=== PATIENT | female | born 1940 | race Caucasian/White ===

== ENCOUNTER 2020-08-17 16:02 | Outpatient (CLI) | payer MEDICARE, BC, SELFPAY ==
--- NOTE | ~2020-08-17 | XR_ITS ---
XR_CERV2-3V_CR DATE: 08/17/2020 16:38 INDICATION: Generalized neck pain. Limited range of motion. History of multiple falls. TECHNIQUE: Lateral, swimmer's, AP and open-mouth views COMPARISON: None FINDINGS: There is diffuse osteopenia. There is 3.3 mm anterolisthesis at C3-4. There appears to be greater anterolisthesis at C4-5. There is suggestion severe degenerative disc disease at C4-5, C5-6 and likely C6-7 but these areas ar e not optimally visualized. Consider further evaluation with CT or MR imaging. Prominent degenerative change of the apophyseal joints throughout the cervical spine. Left AICD/pacemaker device. IMPRESSION: Limited incomplete examination of the cervical spine; consider CT or MRI examination for complete evaluation Reviewed, dictated and finalized at [facility]. Reviewed, dictated and finalized at location A. CUTTER IMPRESSION: Limited incomplete examination of the cervical spine; consider CT o r MRI examination for complete evaluation
--- NOTE | ~2020-08-17 | XR_ITS ---
XR shoulder RT min 2V DATE: 08/17/2020 16:37 INDICATION: Chronic right shoulder pain. History of multiple falls. TECHNIQUE: 4 views COMPARISON: None FINDINGS: Diffuse osteopenia. No recent fracture or dislocation. No periosteal reaction or bone destruction. No abnormal right shou lder soft tissue calcification is detected. There is mild osteoarthritis at the right glenohumeral joint. Incidental finding of left AICD/pacemaker leads. IMPRESSION: Osteopenia Mild osteoarthritis at the glenohumeral joint. Reviewed, dictated and finalized at location A. SPECIAL AGENT
== END 2020-08-17 16:03 | disposition home or self-care (01) ==
LOC: CHSIMG 16:04
PROVIDERS: PCP Family Medicine; Visit Provider Family Medicine
DX: M25.511 Pain in right shoulder (principal); M54.2 Cervicalgia
CPT/HCPCS: 72040; 73030

== ENCOUNTER 2020-08-30 10:14 | Outpatient (CLI) | payer MEDICARE, BC, SELFPAY ==
--- NOTE | ~2020-08-30 | CT_ITS ---
EXAMINATION: CT soft tissue neck wo con DATE: 08/30/2020 10:46 INDICATION: Neck pain. TECHNIQUE: Computed tomography (CT) of the neck was performed without intravenous contrast. Automated exposure control and iterative reconstruction technique were employed. The dose-length product was 4 86.51 mGy-cm. COMPARISON: None FINDINGS: There are likely changes of ocular lens replacement surgeries. There are no pathologically enlarged lymph nodes. There is a left chest pacer. There is a trace left mastoid effusion. The parana faizan sinuses are clear. There is levoscoliosis of cervicothoracic spine. There is 3 mm anterolisthesis of C3 on C4 and C4 on C5, 2 mm retrolisthesis of C6 on C7, and 2 mm anterolisthesis of C7 on T1. The re is mildly decreased disc height at C3-C4, moderately decreased disc height at C4-C5, and severely decreased disc height at C5-C6 and C6-C7. The following disc levels are specifically discussed: C2-C3: There is mild left uncovertebral joint osteoarthritis. There is moderate right and severe left facet joint osteoarthritis. There is mild left neural foraminal stenosis. There is no central canal stenosis. C3-C4: There is mild left uncovertebral joint osteoarthritis. There is severe bilateral facet joint o steoarthritis. There is moderate bilateral neural foraminal stenosis. There is mild central canal oniel nosis. C4-C5: There is mild bilateral uncovertebral joint osteoarthritis. There is severe bilateral facet chanda int osteoarthritis. There is moderate bilateral neural foraminal stenosis. There is mild central max l stenosis. C5-C6: There is severe bilateral uncovertebral joint osteoarthritis. There is severe bilateral facet joint osteoarthritis. There is mild right and moderate left neural foraminal stenosis. There is mild central canal stenosis. C6-C7: There is severe bilateral uncovertebral joint osteoarthritis. There is severe bilateral facet joint osteoarthritis. There is moderate bilateral neural foraminal stenosis. There is mild central ca nal stenosis. C7-T1: There is no uncovertebral joint osteoarthritis. There is severe bilateral facet joint osteoart hritis. There is mild bilateral neural foraminal stenosis. There is no central canal stenosis. IMPRESSION: 1. Severe cervical spondylosis. Reviewed, dictated and finalized at location A. GRATION INSPECTOR
== END 2020-08-30 10:15 | disposition home or self-care (01) ==
LOC: CHSIMG 10:16
PROVIDERS: PCP Nurse Practitioner Family; Visit Provider Nurse Practitioner Family
DX: M54.2 Cervicalgia (principal); M47.9 Spondylosis, unspecified
CPT/HCPCS: 70490

== ENCOUNTER 2020-09-15 11:00 | Outpatient (RCR) | payer MEDICARE, BC, SELFPAY ==
[2020-06-22 15:26] VITALS: BP 139/75; PULSE 76; RESP 16; O2SAT 98; BMI 36.1
== END 2020-09-20 23:59 | disposition home or self-care (01) ==
PROVIDERS: PCP Family Medicine
DX: I20.8 Other forms of angina pectoris (principal)
CPT/HCPCS: 93798

== ENCOUNTER 2020-10-27 14:47 | Outpatient (CLI) | payer MEDICARE, SELFPAY ==
[2020-10-27 15:12] LABS: Hematocrit 37.2 % (35.0-42.0); Hemoglobin 11.7 g/dL (11.7-13.8); Mean Corpuscular HGB Conc 31.5 g/dL (32.0-36.0); Mean Corpuscular Hemoglobin 32.1 pg (27.0-31.0); Mean Corpuscular Volume 101.9 fL (78.0-102.0); Mean Platelet Volume 9.2 fl (9.2-11.8); Platelet Count Result 252 K/mm3 (150-420); Red Blood Count 3.65 M/mm3 (4.20-5.40); Red Cell Distribution Width 13.5 % (11.6-14.4)
[2020-10-27 15:22] LABS: Hemoglobin A1C 6.2 % (<5.7)
[2020-10-27 16:06] LABS: Alanine Aminotransferase 19 U/L (14-59); Albumin Level 3.5 g/dL (3.4-5.0); Alkaline Phosphatase 56 U/L (46-116); Anion Gap 4 mmol/L (8-16); Aspartate Amino Transferase 14 U/L (15-37); Bilirubin,Total 0.3 mg/dL (0.00-1.00); Blood Urea Nitrogen 25 mg/dL (7-18); Calcium 9.1 mg/dL (8.5-10.1); Carbon Dioxide 31 mmol/L (21-32); Chloride 103 mmol/L (98-108); Estimated Glomerular Filt Rate 53; Glucose 124 mg/dL (70-99); Osmolality Calculated 291 mOsm/kg (285-295); Potassium 4.7 mmol/L (3.5-5.1); Sodium 138 mmol/L (136-145); Total Protein 6.7 g/dL (6.4-8.2)
[2020-10-27 16:12] LABS: Thyroid Stimulating Hormone Reflex 1.34 u/IU/mL (0.36-3.74)
[2020-10-28 12:10] LABS: Creatinine Urine 145.32 mg/dL (40-278); MALB Creatinine Ratio 8.9 mg/g (0-30); Microalbumin Urine Random < 13.0 mg/L
== END 2020-10-27 14:48 | disposition home or self-care (01) ==
LOC: CHSLAB 14:50
PROVIDERS: PCP Family Medicine; Visit Provider Family Medicine
DX: E11.9 Type 2 diabetes mellitus without complications (principal)
CPT/HCPCS: 36415; 80053; 82043; 83036; 84443; 85027

== ENCOUNTER 2020-10-30 11:00 | Outpatient (RCR) | payer MEDICARE, BC, SELFPAY ==
[2020-09-21 00:01] VITALS: BP 139/75; PULSE 76; RESP 16; O2SAT 98; BMI 36.1
== END 2020-10-30 13:00 | disposition home or self-care (01) ==
PROVIDERS: PCP Family Medicine
DX: I20.8 Other forms of angina pectoris (principal)
CPT/HCPCS: 93798; 97150; G0424

== ENCOUNTER 2021-03-27 15:03 | Outpatient (CLI) | payer MEDICARE, BC, SELFPAY ==
--- NOTE | ~2021-03-27 | XR_ITS ---
EXAMINATION: XR chest 2V DATE: 03/27/2021 15:35 INDICATION: Shortness of breath, COVID 19 TECHNIQUE: PA and lateral views of the chest are obtained. COMPARISON: None available FINDINGS: There are minimal opacities of the lung bases. Cardiomegaly is noted. There is no pleural e ffusion or pneumothorax. There is severe thoracic spondylosis. A dual-lead cardiac AICD/pacemaker of the left chest wall ends with leads in expected locations. There are partially imaged changes of post erior fusion in the lumbar spine. IMPRESSION: 1. Minimal airspace opacities of the lung bases, consistent with atelectasis versus pneumonia. 2. Cardiomegaly. Reviewed, dictated and finalized at location B. IMPRESSION: 1. Minimal airspace opacities of the lung bases, consistent with atelectasis ve rsus pneumonia. 2. Cardiomegaly.
== END 2021-03-27 15:04 | disposition home or self-care (01) ==
LOC: CHSIMG 15:08
PROVIDERS: PCP Nurse Practitioner Family; Visit Provider Nurse Practitioner Family
DX: U07.1 COVID-19 (principal)
CPT/HCPCS: 71046

== ENCOUNTER 2021-03-29 08:26 | Outpatient (CLI) | payer MEDICARE, BC, SELFPAY ==
[2021-03-29] MEDS: ACETAMINOPHEN 325 MG TABLET 650 MG PO (08:56)
[2021-03-29] MEDS: diphenhydrAMINE HCl CAP 25 MG CAPSULE PO (08:57)
[2021-03-29] MEDS: FAMOTIDINE 20 MG TABLET PO (08:57)
[2021-03-29 09:17] VITALS: BMI 35.6
[2021-03-29 09:18] VITALS: BP 135/60; PULSE 76; RESP 18; TEMP 36.8; O2SAT 98
[2021-03-29 10:10] VITALS: BP 124/59; PULSE 72; RESP 16; TEMP 36.4; O2SAT 97
--- NOTE | 2021-03-29 10:11 | PC.NURSE ---
Patient here for IV Regeneron infusion r/t positive with Covid and fits in high risk criteria. Education on medication given. No concerns voiced. Pre meds PO and IV Regeneron administered. Tolerated well. Safe exit of hospital.
== END 2021-03-29 08:27 | disposition home or self-care (01) ==
LOC: CHSTREATRM 08:31
PROVIDERS: PCP Nurse Practitioner Family; Visit Provider Nurse Practitioner Family
DX: Z23 Encounter for immunization (principal); U07.1 COVID-19
CPT/HCPCS: A9270; J7050; M0243

== ENCOUNTER 2021-04-16 08:40 | Outpatient (CLI) | payer MEDICARE, SELFPAY ==
[2021-04-16 09:05] LABS: Hemoglobin A1C 6.6 % (<5.7)
[2021-04-16 10:05] LABS: Thyroid Stimulating Hormone Reflex 1.76 u/IU/mL (0.36-3.74)
== END 2021-04-16 08:41 | disposition home or self-care (01) ==
LOC: CHSLAB 08:42
PROVIDERS: PCP Family Medicine; Visit Provider Family Medicine
DX: E11.9 Type 2 diabetes mellitus without complications (principal); E03.9 Hypothyroidism, unspecified
CPT/HCPCS: 36415; 83036; 84443

== ENCOUNTER 2021-10-18 10:05 | Outpatient (CLI) | payer MEDICARE, BC, SELFPAY ==
--- NOTE | 2021-10-25 14:10 | P.PCNPFT_ITS ---
PFT Procedure Performed PFT Procedure Performed Spirometry with Pre/Post Bronchodilator Plethysmography (Lung Vol) Diffusing Cap (DLCO) Flow Vol Loop PFT Interpretation DOS: 10/18/2021 REQUESTING: Dr You REASON FOR TESTING: Dyspnea PULMONARY FUNCTION TESTS Results are reliable and reproducible. Spirometry: FEV1 is 74% predicted, 1.25 L, mildly reduced. FVC is 85% predicted, 1.83 L, normal. The FEV1/FVC ratio is 68%, mildly decreased and consistent with airflow obstruction. After bronchodilator administration there was a 12% increase in the FVC, and this is greater than 200 mL. This is consistent with a good response to bronchodilator. Lung volumes: Total lung capacity is 107%, 4.40 L. This is a normal lung capacity. The residual volume is 140% predicted which shows moderate air trapping. The RV/TLC is increased 57% consistent with air trapping. Airway resistance increased, 345%. Diffusion: DLCO is 71%, mildly decreased. When adjusted for alveolar volumes, this corrects to 118%, normal. Flow volume loop: There is mild scooping of the expiratory limb consistent w ith obstruction. IMPRESSION: Mild obstructive ventilatory impairment with good response to bronchodilator, moderate air trapping and mild diffusion impairment. In the proper clinical setting this may represent COPD asthma overlap. Clinical correlation is advised. Cara Wolf MD
== END 2021-10-18 10:06 | disposition home or self-care (01) ==
LOC: CHSCARD 10:06
PROVIDERS: PCP Family Medicine; Visit Provider Family Medicine
DX: R06.00 Dyspnea, unspecified (principal)
CPT/HCPCS: 94060; 94726; 94729

== ENCOUNTER 2021-12-10 14:48 | Outpatient (CLI) | payer MEDICARE, BC, SELFPAY ==
--- NOTE | ~2021-12-10 | XR_ITS ---
EXAM: XR_[id number]_CR DATE: 12/10/2021 15:19 HISTORY: FALL X4DAYS AGO,RT>LT RIB PAIN POSTERIOR . COMPARISON: None available. FINDINGS: Left chest pacer, with intact leads. Upper abdominal soft tissue anchors. Mediastinal vasc ular clips. Senescent changes in the lungs. Hiatal hernia. Severe osteopenia which limits radiographi c sensitivity. Thoracolumbar scoliosis with lumbar fusion. Numerous left ribs are obscured by the pac emaker. IMPRESSION: Exam limited as described above, within those constraints no definite evidence of left or right rib fracture. Reviewed, dictated and finalized at location K. IMPRESSION: Exam limited as described above, within those constraints no defini te evidence of left or right rib fracture.
== END 2021-12-10 14:49 | disposition home or self-care (01) ==
LOC: CHSIMG 14:52
PROVIDERS: PCP Family Medicine; Visit Provider Family Medicine
DX: R07.81 Pleurodynia (principal); Z91.81 History of falling
CPT/HCPCS: 71111

== ENCOUNTER 2024-04-30 12:53 | Outpatient (NON) | payer MEDICARE, SELFPAY ==
[2024-04-30 13:01] LABS: Occult Blood Negative (Negative)
== END 2024-04-30 12:54 | disposition home or self-care (01) ==
LOC: CHSLAB 12:54
PROVIDERS: Visit Provider Family Medicine
DX: K62.5 Hemorrhage of anus and rectum (principal)
CPT/HCPCS: 82272

== ENCOUNTER 2024-05-23 16:52 | Outpatient (NON) | payer MEDICARE, BC, SELFPAY ==
[2024-05-24 05:47] LABS: Add Urine Microscopic? NO; Appearance Urine Clear (Clear); Bilirubin Urine Negative (Negative); Blood Urine Negative (Negative); Color Urine Light Yellow (Yellow); Glucose Urine UA Negative (Negative); Ketones Urine Negative (Negative); Leukocyte Esterase Ur Negative LEU/UL (Negative); Nitrate Urine Negative (Negative); Protein Urine Negative (Negative); Specific Grav Ur 1.015 (1.010-1.020); Urobilinogen Urine 0.2 mg/dL (0.2-1.0); pH Urine 5.5 (5.0-8.0)
== END 2024-05-23 16:53 | disposition home or self-care (01) ==
LOC: CHSLAB 16:57
PROVIDERS: Visit Provider Family Medicine
DX: R35.0 Frequency of micturition (principal); N39.0 Urinary tract infection, site not specified
CPT/HCPCS: 81003

== ENCOUNTER 2024-05-26 10:42 | Outpatient (CLI) | payer MEDICARE, BC, SELFPAY ==
--- NOTE | ~2024-05-26 | XR_ITS ---
XR toe 2nd RT min 2V Ordering provider: Babatunde Juarez MD History: . RT 2nd toe pain/swelling, redness, hx of arthritis . Comparison: None. FINDINGS: BONES: No acute fracture or dislocation. Postoperative changes in the distal metaphysis of the first metatarsal bone. JOINT SPACES: Osteoarthritic changes of the visualized tarsometatarsal joints. Osteoarthritic changes of the proximal and distal interphalangeal joints of the second toe. SOFT TISSUES: Soft tissue swelling seen in the plantar aspect. IMPRESSION: No acute osseous abnormality. Osteoarthritic changes in the proximal and distal phalangeal joints of the second toe. Reviewed, dictated and finalized at location A. ER PRICER IMPRESSION: No acute osseous abnormality. Osteoarthritic changes in the proximal and distal phalangeal joints of the seco nd toe.
--- NOTE | ~2024-05-26 | XR_ITS ---
Right foot Technique: AP, oblique, and lateral views were obtained. Clinical History: Pain and swelling Findings: No acute fracture or dislocation is seen. Prior osteotomy with orthopedic screw the first m etatarsal. There is mild degenerative change at the first MTP joint. There is moderate degenerative c hange of the second DIP joint. There are mild degenerative changes of the tarsometatarsal joints diff usely. There is diffuse soft tissue swelling of the second digit. Impression: Polyarticular osteoarthritis, as above. Secondary soft tissue swelling, nonspecific. Reviewed, dictated and finalized at location M. SUPERVISOR Impression: Polyarticular osteoarthritis, as above. Secondary soft tissue swelling, nonspecific.
[2024-05-26 11:06] LABS: Basophils Absolute Auto 0.03 K/mm3 (0.00-0.10); Basophils Percent Auto 0.4 % (0.0-1.0); Eosinophils Absolute Auto 0.18 K/mm3 (0.02-0.50); Eosinophils Percent Auto 2.2 % (1.0-6.0); Hematocrit 27.8 % (35.0-42.0); Hemoglobin 8.8 g/dL (11.7-13.8); Immature Granulocyte Absolute 0.03 K/mm3 (0.00-0.00); Immature Granulocyte Percent A 0.4 % (0.0-0.0); Lymphocytes Absolute Auto 0.82 K/mm3 (1.10-4.50); Mean Corpuscular HGB Conc 31.7 g/dL (32-36); Mean Corpuscular Hemoglobin 29.6 pg (27.0-31.0); Mean Corpuscular Volume 93.6 fL (78.0-102.0); Mean Platelet Volume 9.5 fl (9.2-11.8); Monocytes Absolute Auto 0.82 K/mm3 (0.10-0.90); Neutrophils Absolute Auto 6.34 K/mm3 (1.70-7.20); Platelet Count Result 255 K/mm3 (150-420); Red Blood Count 2.97 M/mm3 (4.20-5.40); White Blood Count 8.2 K/mm3 (4.8-10.8)
[2024-05-26 11:42] LABS: Alanine Aminotransferase 11 U/L (14-59); Albumin Level 2.4 g/dL (3.4-5.0); Alkaline Phosphatase 60 U/L (46-116); Anion Gap 4 mmol/L (4-12); Aspartate Amino Transferase 12 U/L (15-37); Bilirubin,Total 0.4 mg/dL (0.00-1.00); Blood Urea Nitrogen 19 mg/dL (7-18); Calcium 9.1 mg/dL (8.5-10.1); Carbon Dioxide 33 mmol/L (21-32); Chloride 101 mmol/L (98-108); Estimated Glomerular Filt Rate 45; Glucose 149 mg/dL (70-99); Osmolality Calculated 291 mOsm/kg (285-295); Potassium 3.9 mmol/L (3.5-5.1); Sodium 138 mmol/L (136-145); Total Protein 5.8 g/dL (6.4-8.2)
[2024-05-26 15:27] LABS: Ferritin 148 ng/mL (8-252); Iron 8 ug/dL (50-170); Percent Iron Saturation 3 % (12-57)
== END 2024-05-26 10:43 | disposition home or self-care (01) ==
PROVIDERS: PCP Family Medicine; Visit Provider Family Medicine
DX: D64.9 Anemia, unspecified (principal); M79.671 Pain in right foot; M19.071 Primary osteoarthritis, right ankle and foot; M79.89 Other specified soft tissue disorders
CPT/HCPCS: 36415; 73630; 73660; 80053; 82728; 83540; 83550; 85025